=== PATIENT | male | born 1990 | race Caucasian/White ===

== ENCOUNTER 2019-03-27 05:06 | Emergency (ER) | payer BC ==
[~2019-03-27] VITALS: Ht 170.2 cm; Wt 61.2 kg
[2019-03-27 05:10] VITALS: BP_SYST 121
--- NOTE | 2019-03-27 05:14 | NUR ---
Placed in room 2 . Placed on dining chair seat cushion trimmer, blood pressure machine and pulse oximeter. To gown for exam. Side rails up.
--- NOTE | 2019-03-27 05:20 | NUR ---
Pt is AAO x 4 and ambulatory c/o cough and shortness of breath since yesterday. Pt states he has been taking medications for the cough but no relief. Pt denies N/V, fever, or diarrhea. No other injuries/complaints per patient or noted.
--- NOTE | 2019-03-27 05:45 | NUR ---
ER Dr. Wilcox at bedside examining patient.
[2019-03-27] MEDS ORDERED: methylPREDNISolone SOD SUCC/PF 62.5 MG/ML VIAL IM ONE (06:00)
[2019-03-27] MEDS ORDERED: IPRATROPIUM/ALBUTEROL SULFATE 3 ML AMPUL.NEB (DUONEB) INH ONE (06:00)
--- NOTE | 2019-03-27 06:18 | NUR ---
Portable X Ray bedside, well tolerated
[2019-03-27 06:23] LABS: BASOPHILS % (AUTO) 0.3 % (0.0-2.0); EOSINOPHILS # (AUTO) 0.1 K/uL (0.0-0.4); EOSINOPHILS % (AUTO) 1.6 % (0.0-4.0); HEMATOCRIT 43.3 % (36-54); HEMOGLOBIN 14.8 g/dL (14.0-18.0); LYMPHOCYTES # (AUTO) 1.5 K/uL (1.0-5.5); LYMPHOCYTES % (AUTO) 16.6 % (20.5-51.5); MEAN CORPUSCULAR HEMOGLOBIN 31 pg (27-31); MEAN CORPUSCULAR HGB CONC 34 % (32-36); MEAN CORPUSCULAR VOLUME 90 fL (79.0-98.0); MONOCYTES # (AUTO) 0.7 K/uL (0.0-1.0); MONOCYTES % (AUTO) 7.3 % (1.7-9.3); NEUTROPHILS # (AUTO) 6.9 K/uL (1.8-7.7); NEUTROPHILS % (AUTO) 74.2 % (40.0-70.0); PLATELET COUNT (AUTO) 165 K/uL (130-430); RED BLOOD CELL COUNT(AUTO) 4.79 MIL/uL (4.2-6.2); RED CELL DISTRIBUTION WIDTH 13.2 % (9.0-15.0); WHITE BLOOD COUNT (AUTO) 9.3 K/uL (4.8-10.8)
[2019-03-27 07:40] VITALS: BP_SYST 119
--- NOTE | 2019-03-27 07:40 | NUR ---
Patient given written and verbal discharge instructions and verbalizes understanding. ER MD discussed with patient the results and treatment provided. Patient in stable condition. ID arm band removed. Rx of zithromax, prednisone, abluterol given. Patient educated on pain management and to follow up with PMD. Pain Scale 0/10. Opportunity for questions provided and answered. Medication side effect fact sheet provided.
== END 2019-03-27 07:40 | disposition home or self-care (01) ==
LOC: SED 05:06
DX: J45.901 Unspecified asthma with (acute) exacerbation (principal); J20.9 Acute bronchitis, unspecified; J45.909 Unspecified asthma, uncomplicated
CPT/HCPCS: 36415; 71045; 85025; 93005; 94640; 96372; 99284; J2930; J7620